=== PATIENT | male | born 1950 | race Caucasian/White ===

== ENCOUNTER 2018-03-18 12:45 | Inpatient (IN) | payer MEDICARE ==
[~2018-03-18] VITALS: Ht 167.6 cm; Wt 66.2 kg
[2018-03-18] MEDS ORDERED: LEVO50TA8 PO (13:02)
[2018-03-18] MEDS ORDERED: SERT100T PO (13:02)
[2018-03-18] MEDS ORDERED: LEVE500T9 PO (13:02)
--- NOTE | 2018-03-18 14:11 | NUR ---
PT TRANSFERED TO FLOOR IN STABLE CONDITION
[2018-03-18] MEDS ORDERED: MAGNESIUM HYDROXIDE 30 ML LIQUID UDC PO PRN (14:30)
[2018-03-18] MEDS ORDERED: LORAZEPAM 0.5 MG TABLET PO PRN (14:30)
[2018-03-18] MEDS ORDERED: ACETAMINOPHEN 325 MG TABLET PO PRN (14:30)
[2018-03-18] MEDS ORDERED: MAG HYDROX/AL HYDROX/SIMETH 30 ML LIQUID UDC PO PRN (14:30)
[2018-03-18 16:28] VITALS: BP 106/63
[2018-03-18] MEDS: LEVETIRACETAM 500 MG TABLET PO SCH (21:24)
[2018-03-18] MEDS: TEMAZEPAM 7.5 MG CAPSULE PO PRN (23:24)
[2018-03-19] MEDS: LEVOTHYROXINE SODIUM 50 MCG TABLET PO SCH (06:49)
[2018-03-19 07:30] VITALS: BP 98/61
[2018-03-19] MEDS: LEVETIRACETAM 500 MG TABLET PO SCH ×2 (08:02→20:56)
[2018-03-19 16:28] VITALS: BP 96/62
[2018-03-19 19:30] VITALS: BP 103/60
[2018-03-19] MEDS: GABAPENTIN 300 MG CAPSULE PO SCH (20:56)
[2018-03-20] MEDS: LEVOTHYROXINE SODIUM 50 MCG TABLET PO SCH (06:43)
--- NOTE | 2018-03-20 06:51 | NUR ---
Received to care, pt laying in bed, pt A&O 2-3, pt admitted that he is depressed, pt stated that his does not believe in psychiatrist and states that "they are trying to fix a problem with medication that is spiritual". Pt admitted to being depressed. Pt vague and denies trying to harm himself. Pt complained that he cannot get any sleep because of the disruptions in his room (pt had a accident in the bathroom so EMS came to clean it). Pt wanted to talk to his on the phone, pt was assisted to make the phone call. Pt states that they had a good phone call. Pt complied with taking meds. Pt slept throughout the night.
[2018-03-20 07:30] VITALS: BP 124/70
[2018-03-20] MEDS: LEVETIRACETAM 500 MG TABLET PO SCH ×2 (09:30→21:00)
[2018-03-20] MEDS: GABAPENTIN 300 MG CAPSULE PO SCH ×2 (09:31→21:00)
[2018-03-20] MEDS: SERTRALINE HCL 100 MG TABLET PO SCH (09:32)
[2018-03-20] MEDS: DOCUSATE SODIUM 100 MG CAPSULE PO SCH (09:33)
--- NOTE | 2018-03-20 11:40 | NUR ---
GPS/RN- patient notified of 14Day hold; court faxed, fax confirmation noted.
[2018-03-20 16:22] VITALS: BP 104/71
--- NOTE | 2018-03-20 16:53 | NUR ---
Initial Discharge Plan: Patient lives at home with his [[address] [facility] [place] [address]; [phone]]. Per patient, he would like to return home when ready for discharge. Patient is accepting of patient once ready. According to patient's , patients son, Jeb, can pick and shovel worker patient when ready. However, the son is requesting a 2 day notice so that he can make arrangements with his employer. cold storage worker explained that it can try and be accommodated. Patient is agreeable and understanding.
--- NOTE | 2018-03-20 17:26 | NUR ---
Gps/Vice President Media Relations- Appeared to be isolative this pm, stayed in bed, most of the afternoon , sleeping. Encouraged to stay in the dinning room during meals. Encouraged continues verbalizations of his feeling . Continue to monitor patient, provide a safe and therapeutic environment.
--- NOTE | 2018-03-20 20:00 | NUR ---
RECEIVED PATIENT IN HIS ROOM IN BED, HE IS NOTED SLEEPING BUT EASILY AROUSABLE . UPON INTERVIEW, HE IS NOTED A/O X 3. ABLE TO AMBULATE WITH STEADY GAIT. NOTED WITHDRAWN, LOW MOOD, FLAT AFFECT. HOWEVER, HE DENIES SI AND HE IS ABLE TO CFS. SAFETY WAS EMPHASIS. WILL CONTINUE TO MONITOR.
[2018-03-20 21:37] VITALS: BP 114/72
[2018-03-21] MEDS: LEVOTHYROXINE SODIUM 50 MCG TABLET PO SCH (06:38)
[2018-03-21 07:30] VITALS: BP 107/63
[2018-03-21] MEDS: LEVETIRACETAM 500 MG TABLET PO SCH ×2 (08:17→20:30)
[2018-03-21] MEDS: SERTRALINE HCL 100 MG TABLET PO SCH (08:17)
[2018-03-21] MEDS: GABAPENTIN 300 MG CAPSULE PO SCH ×2 (08:17→20:30)
[2018-03-21] MEDS: DOCUSATE SODIUM 100 MG CAPSULE PO SCH (08:17)
[2018-03-21 16:54] VITALS: BP 107/66
[2018-03-21 20:00] VITALS: BP 109/64
[2018-03-22] MEDS: LEVOTHYROXINE SODIUM 50 MCG TABLET PO SCH (06:10)
--- NOTE | 2018-03-22 06:25 | NUR ---
GPS: REMAIN ISOLATIVE WITH STAFF.COMPLIANT WITH MEDICATIONS.NO C/O PAIN OR DISCOMFORT AT THIS TIME. SLEPT 6:30 HRS THROUGH THE NIGHT.CONTINUE PLAN OF CARE.
[2018-03-22 07:30] VITALS: BP 108/69
[2018-03-22] MEDS: SERTRALINE HCL 100 MG TABLET PO SCH (07:58)
[2018-03-22] MEDS: GABAPENTIN 300 MG CAPSULE PO SCH ×2 (07:59→20:39)
[2018-03-22] MEDS: DOCUSATE SODIUM 100 MG CAPSULE PO SCH (07:59)
[2018-03-22] MEDS: LEVETIRACETAM 500 MG TABLET PO SCH ×2 (07:59→20:39)
[2018-03-22 17:52] VITALS: BP 101/60
[2018-03-22 20:08] VITALS: BP 100/60
--- NOTE | 2018-03-23 06:02 | NUR ---
GPS: Remain calm and cooperative through the night. slept 8 hrs through the night. still patient isolative. continue monitoring for safety.
[2018-03-23] MEDS: LEVOTHYROXINE SODIUM 50 MCG TABLET PO SCH (06:23)
[2018-03-23 07:58] VITALS: BP 105/49
[2018-03-23] MEDS: LEVETIRACETAM 500 MG TABLET PO SCH ×2 (08:07→20:30)
[2018-03-23] MEDS: GABAPENTIN 300 MG CAPSULE PO SCH ×2 (08:07→20:30)
[2018-03-23] MEDS: DOCUSATE SODIUM 100 MG CAPSULE PO SCH (08:07)
[2018-03-23] MEDS: SERTRALINE HCL 100 MG TABLET PO SCH (08:07)
[2018-03-23 15:25] VITALS: BP 111/54
[2018-03-23 20:00] VITALS: BP 108/63
[2018-03-24] MEDS: LEVOTHYROXINE SODIUM 50 MCG TABLET PO SCH (06:06)
--- NOTE | 2018-03-24 06:18 | NUR ---
GPS: REMAIN CALM AND COOPERATIVE. SLEPT 9 HRS THROUGH THE NIGHT.
[2018-03-24 07:30] VITALS: BP 113/73
--- NOTE | 2018-03-24 07:48 | NUR ---
report received from Charlene DERAS. 67 yr old male was admitted on 03/18/18 on 14 day hold till 04/03/18. patient in room and up and about Addendum: 03/24/18 at 0748 by ROSIE RODRIGUEZ RN Amended: Links added.
[2018-03-24] MEDS: GABAPENTIN 300 MG CAPSULE PO SCH ×2 (09:00→21:20)
[2018-03-24] MEDS: DOCUSATE SODIUM 100 MG CAPSULE PO SCH (09:01)
[2018-03-24] MEDS: LEVETIRACETAM 500 MG TABLET PO SCH ×2 (09:01→21:20)
[2018-03-24] MEDS: SERTRALINE HCL 100 MG TABLET PO SCH (09:01)
[2018-03-24] MEDS ORDERED: MAGNESIUM CITRATE 296 ML BOTTLE PO ONE (13:45)
--- NOTE | 2018-03-24 13:55 | NUR ---
c/o constipation. MOM given po. Addendum: 03/24/18 at 1356 by ROSIE RODRIGUEZ RN Amended: Links added.
[2018-03-24 16:00] VITALS: BP 109/64
--- NOTE | 2018-03-24 17:36 | NUR ---
mag citrate given for constipation. Addendum: 03/24/18 at 1736 by ROSIE RODRIGUEZ RN Amended: Links added.
--- NOTE | 2018-03-24 19:23 | NUR ---
report given to Hollie RN Addendum: 03/24/18 at 1924 by ROSIE RODRIGUEZ RN Amended: Links added.
[2018-03-24 20:25] VITALS: BP 118/72
[2018-03-24] MEDS: TEMAZEPAM 7.5 MG CAPSULE PO PRN (21:48)
--- NOTE | 2018-03-24 22:30 | NUR ---
RECEIVED PATIENT IN HIS ROOM AND UPON APPROACH HE WAS GUARDED AND SUSPICIOUS.HE QUESTIONED EVERY MED AND ASKED WHAT SIDE EFFECTS THERE WAS TO THEM.IT WAS EXPLAINED THAT THESE WERE AT THERAPEUTIC LEVELS BUT WE STILL CONTINUE TO MONITOR.DENIES SI/HI .NO ACUTE DISTRESS OR PAIN NOTED. WILL CONTINUE WITH HIS CARE
[2018-03-25] MEDS: LEVOTHYROXINE SODIUM 50 MCG TABLET PO SCH (06:32)
--- NOTE | 2018-03-25 06:49 | NUR ---
HE SLEPT APPROX. 7HRS. ALL MEDS GIVEN .NO DISCOMFORT OR PAIN NOTED.
[2018-03-25 07:30] VITALS: BP 109/68
[2018-03-25] MEDS: GABAPENTIN 300 MG CAPSULE PO SCH ×2 (08:37→20:39)
[2018-03-25] MEDS: LEVETIRACETAM 500 MG TABLET PO SCH ×2 (08:37→20:39)
[2018-03-25] MEDS: DOCUSATE SODIUM 100 MG CAPSULE PO SCH (08:37)
[2018-03-25] MEDS: SERTRALINE HCL 100 MG TABLET PO SCH (08:43)
--- NOTE | 2018-03-25 14:47 | NUR ---
Discharge Note: abatement worker called and spoke with patients , Sonia [[phone]], to inform her that patient is scheduled to tentatively discharge on . Per Sonia, transportation will be provided by her son, Jeb [[phone]] at 1:00pm.
[2018-03-25 17:19] VITALS: BP 106/56
[2018-03-25 19:30] VITALS: BP 101/60
--- NOTE | 2018-03-25 20:00 | NUR ---
RECEIVED PATIENT IN HIS ROOM IN BED ASLEEP BUT EASILY AROUSABLE. PATIENT IS NOTED A/O X 3. ABLE TO AMBULATE WITH STEADY GAIT WITH THE AID OF A FWW. AND ABLE TO MAKE HIS NEEDSKNOWN. PATIENT NOTED CALM AND PLEASANT. CONTINUE WITHDRAWN, REFUSED TO LEAVE THE ROOM. DIFFICULT TO VERBALIZE FEELINGS. PATIENT CONTINUE WITH LOW MOOD, BLUNTED AFFECT. HE WAS ABLE TO CFS. SAFETY WAS EMPHASIS. WILL CONTINUE TO MONITOR.
[2018-03-26] MEDS: LEVOTHYROXINE SODIUM 50 MCG TABLET PO SCH (06:28)
[2018-03-26 06:55] LABS: BASOPHILS % (AUTO) 0.6 % (0.0-2.0); EOSINOPHILS # (AUTO) 0.1 K/uL (0.0-0.7); HEMATOCRIT 38.6 % (36.7-47.1); HEMOGLOBIN 13.3 g/dL (12.5-16.3); LYMPHOCYTES # (AUTO) 1.5 K/uL (20.0-40.0); LYMPHOCYTES % (AUTO) 32.4 % (20.5-51.5); MEAN CORPUSCULAR HEMOGLOBIN 31.5 uug (23.8-33.4); MEAN CORPUSCULAR HGB CONC 35 g/dL (32.5-36.3); MEAN CORPUSCULAR VOLUME 91.5 fL (73.0-96.2); MONOCYTES # (AUTO) 0.3 K/uL (2.0-10.0); MONOCYTES % (AUTO) 7.2 % (0.0-11.0); NEUTROPHILS # (AUTO) 2.7 K/uL (1.8-8.9); NEUTROPHILS % (AUTO) 57.8 % (38.5-71.5); PLATELET COUNT (AUTO) 194 K/uL (152-348); RED BLOOD CELL COUNT(AUTO) 4.22 MIL/uL (4.06-5.63); WHITE BLOOD COUNT (AUTO) 4.7 K/uL (3.6-10.2)
[2018-03-26 07:12] LABS: CREATININE 1.4 mg/dL (0.6-1.3); MAGNESIUM 2.5 mg/dL (1.8-2.4); PHOSPHOROUS 3.3 mg/dL (2.5-4.9)
[2018-03-26 07:30] VITALS: BP 105/60
[2018-03-26] MEDS: LEVETIRACETAM 500 MG TABLET PO SCH ×2 (08:31→21:00)
[2018-03-26] MEDS: GABAPENTIN 300 MG CAPSULE PO SCH ×2 (08:31→21:00)
[2018-03-26] MEDS: SERTRALINE HCL 100 MG TABLET PO SCH (08:31)
[2018-03-26] MEDS: DOCUSATE SODIUM 100 MG CAPSULE PO SCH (08:31)
--- NOTE | 2018-03-26 09:40 | NUR ---
Firearms Report (late entry for 03/19/2018): bending shed worker submitted a [employer] firearms report for patient who is on a 5150 danger to self certification.
[2018-03-26 16:07] VITALS: BP 107/67
[2018-03-26 19:30] VITALS: BP 100/59
--- NOTE | 2018-03-27 01:46 | NUR ---
Received pt to care, pt A&O x2, unkempt, labile, disoriented, refused to take gabapentin stating that med had adverse s/e, pt later complied with taking meds. Pt states that he is excited to go home. Pt denies having any SI and CFS.
[2018-03-27] MEDS: LEVOTHYROXINE SODIUM 50 MCG TABLET PO SCH (06:41)
[2018-03-27 07:30] VITALS: BP 105/65
--- NOTE | 2018-03-27 08:04 | NUR ---
Received patient in bed, arousable. No shortness of breath noted. will monitor.
--- NOTE | 2018-03-27 08:37 | NUR ---
Discharge Note: Patient will be discharged back to home with his , Sonia [[address] [place] [address]; ] and transportation will be provided by patients son, Jeb Hill [[phone]] at 1:00pm. lavender farm worker called and spoke with Sonia, patients , informing her of patient discharge and she is agreeable. Patient is alert and oriented x3 and denies any SI/HI. Patient will follow-up with Dr. Merrill (psychiatrist) as an outpatient. No appointment has been scheduled as of now, but social service manager encouraged patient and , Sonia, to schedule a follow-up appointment. Patient also receives outpatient mental health treatment at the [facility] [[address] [place] [address]; ]. Patient was given outpatient mental health resources [facility] , [facility] , and the National Suicide Prevention Lifeline .
[2018-03-27] MEDS: DOCUSATE SODIUM 100 MG CAPSULE PO SCH (09:22)
[2018-03-27] MEDS: SERTRALINE HCL 100 MG TABLET PO SCH (09:23)
[2018-03-27] MEDS: GABAPENTIN 300 MG CAPSULE PO SCH (09:23)
[2018-03-27] MEDS: LEVETIRACETAM 500 MG TABLET PO SCH (09:23)
--- NOTE | 2018-03-27 13:00 | NUR ---
Pt is being discharged home and being picked up by his and son. Pt is calm, cooperative, denies S.I. VS are stable. Discharge instructions given, including follow up protocol and medication prescriptions. Pt and his family verbalize understanding. All belongings returned and forms signed.
== END 2018-03-27 13:00 | disposition home or self-care (01) | DRG 885 ==
LOC: ER 12:45 → GPS 13:59
PROVIDERS: ADMIT Psychiatry & Neurology Psychiatry
DX: F31.30 Bipolar disorder, current episode depressed, mild or moderate severity, unspecified (principal); N18.9 Chronic kidney disease, unspecified; N17.9 Acute kidney failure, unspecified; R45.851 Suicidal ideations; G40.909 Epilepsy, unspecified, not intractable, without status epilepticus; K59.00 Constipation, unspecified
CPT/HCPCS: 36415; 83735; 84100; 85025; A4663